=== PATIENT | male | born 1940 | race African-American/Black ===

== ENCOUNTER 2020-06-15 14:56 | Inpatient (IN) | payer MEDICARE, OTHER ==
[~2020-06-15] VITALS: Ht 177.8 cm; Wt 83.9 kg
--- NOTE | 2020-06-15 15:10 | NUR ---
DOMINGA COELHO FROM [facility] PRIOR TO GPS ADMISSION, AGGRESSIVE TOWARD STAFF PER REPORT. DENIES PAIN. IN ROOM AIR AND DENIES SOB. RESPIRATION REGULAR AND UNLABORED. ATTACHED ON A MONITOR. WARM BLANKET PROVIDED FOR COMFORT. WILL CONTINUE TO MONITOR THE PATIENT.
[2020-06-15] MEDS ORDERED: LEVE1000 PO (15:15)
[2020-06-15] MEDS ORDERED: HYDR-4075 PO (15:15)
[2020-06-15] MEDS ORDERED: BUSP30TA2 PO (15:15)
[2020-06-15] MEDS ORDERED: ACET325T53 PO (15:15)
[2020-06-15] MEDS ORDERED: RIFA550T PO (15:15)
[2020-06-15] MEDS ORDERED: CHOL200013 PO (15:15)
[2020-06-15] MEDS ORDERED: THIA100T88 PO (15:15)
[2020-06-15] MEDS ORDERED: LEVO137T24 PO (15:15)
[2020-06-15] MEDS ORDERED: LACT10SO3 PO (15:15)
[2020-06-15] MEDS ORDERED: AMLO2.5T2 PO (15:15)
[2020-06-15] MEDS ORDERED: DONE10TA11 PO (15:15)
[2020-06-15] MEDS ORDERED: FOLI0.8T3 PO (15:15)
[2020-06-15] MEDS ORDERED: DIVA250T PO (15:15)
[2020-06-15] MEDS ORDERED: FAMO-131 PO (15:15)
[2020-06-15] MEDS ORDERED: NEOM500T PO (15:15)
[2020-06-15 15:22] LABS: BASOPHILS % (AUTO) 0.3 % (0.0-2.0); EOSINOPHILS % (AUTO) 0.1 % (0.0-6.0); HEMATOCRIT 47 % (39-51); HEMOGLOBIN 15.1 g/dL (13.5-17.5); LYMPHOCYTES # (AUTO) 0.9 /CMM (0.8-4.8); LYMPHOCYTES % (AUTO) 11.9 % (20.0-44.0); MEAN CORPUSCULAR HGB CONC 32 g/dl (31.0-36.0); MEAN CORPUSCULAR VOLUME 92 fL (80-96); MONOCYTES # (AUTO) 0.5 /CMM (0.1-1.30); MONOCYTES % (AUTO) 6.3 % (2.0-12.0); NEUTROPHILS # (AUTO) 6.5 /CMM (1.8-8.9); NEUTROPHILS % (AUTO) 81.4 % (43.0-81.0); PLATELET COUNT (AUTO) 186 /CMM (150-450); RED BLOOD CELL COUNT(AUTO) 5.13 MIL/uL (4.5-6.0)
[2020-06-15 15:29] LABS: CALCIUM, SERUM 8.7 mg/dL (8.5-10.1); CARBON DIOXIDE 18 mmol/L (21-32); CHLORIDE 104 mmol/L (98-107); CREATININE 1.2 mg/dL (0.6-1.3); GLUCOSE 107 mg/dL (74-106); SODIUM SERUM 138 mmol/L (136-145); UREA NITROGEN, BLOOD 10 mg/dL (7-18)
[2020-06-15 15:36] LABS: ALANINE AMINOTRANSFERASE 36 U/L (12-78); ALCOHOL, BLOOD < 3 mg/dL (0-0); ALKALINE PHOSPHATASE 84 U/L (46-116); ASPARTATE AMINOTRANSFERASE 27 U/L (15-37); BILIRUBIN,TOTAL 0.3 mg/dL (0.2-1.0); TOTAL PROTEIN, SERUM 7.8 g/dL (6.4-8.2)
[2020-06-15 15:48] LABS: ACETAMINOPHEN < 2 ug/ml (10-30)
[2020-06-15] MEDS ORDERED: ACETAMINOPHEN 325 MG TABLET PO PRN ×2 (16:30→22:30)
--- NOTE | 2020-06-15 16:38 | NUR ---
SHENG COLLECTED AND SENT TO THE
[2020-06-15 16:53] LABS: BILIRUBIN,URINE Negative (NEGATIVE); COLOR,URINE YELLOW (YELLOW); LEUKOCYTE ESTERASE ,URINE Negative (NEGATIVE); NITRITE, URINE Negative (NEGATIVE); PROTEIN,URINE Negative (NEGATIVE); UGLUCOSE Negative (NEGATIVE); UROBILINOGEN,URINE 0.2 EU/dL (0.2)
[2020-06-15 17:00] LABS: ALBUMIN 4.1 g/dL (3.4-5.0)
[2020-06-15] MEDS: hydrALAZINE HCL 10 MG TABLET PO SCH ×2 (17:00→21:00)
--- NOTE | 2020-06-15 17:58 | NUR ---
CALLED LEAD DATA ENTRY OPERATOR FOR EVAL. NO ANSWER. LEFT MESSAGE.
--- NOTE | 2020-06-15 20:55 | NUR ---
gps 211
--- NOTE | 2020-06-15 21:23 | NUR ---
ATTEMPTED TO GIVE REPORT, STAFF STATES THEY ARE BUSY WITH THE PATIENT AT THE MOMENT. WILL RECEIVE A CALLBACK.
--- NOTE | 2020-06-15 21:50 | NUR ---
RN NOTES RECEIVED ER ADMISSION REPORT FROM DOUG CHAMBERLAIN. ALL PERTINENT ADMISSION INFO REGARDING PT NOTED. WILL WAIT FOR PT TO BE TRANSFERRED TO UNIT AND ADDRESS NEEDS ACCORDINGLY. BOAT CANVAS MAKER INSTALLER MADE AWARE
--- NOTE | 2020-06-15 21:52 | NUR ---
REPORT GIVEN TO NIKHIL CAMACHO FOR CLIFTON.
[2020-06-15 22:00] VITALS: BP 142/68
--- NOTE | 2020-06-15 22:00 | NUR ---
PATIENT TAKEN UP TO ASSIGNED ROOM FOR CLIFTON.
--- NOTE | 2020-06-15 22:00 | NUR ---
GPS ADMISSION NOT RECEIVED PATIENT FROM ER VIA GURNEY; ADMITTING DIAGNOSIS OF PSYCHOSIS PATIENT AWAKE, ALERT ORIENTED X 1-2; LETHARGIC AND CONFUSED. VIETNAMESE SPEAKING. PATIENT NOTED TO BE GRAVELY DISABLED AND DANGER TO OTHERS PER ER REPORT. PATIENT IN NO S/SX OF ACUTE DISTRESS AT THIS TIME. NO SOB NOTED. PATIENT'S BREATHING IS EVEN AND UNLABORED. PATIENT IS ON RA TOLERATING WELL. SATURATING >95% AT THE MOMENT.NO MEDICATION GIVEN. PATIENT ASSISTED WITH TURNING AND REPOSITIONING Q2HR AND PRN FOR COMFORT AND CIRCULATION. PATIENT HAS NO NEEDS AT THIS TIME. PATIENT DENIES SUICIDE THOUGHTS AND HOMICIDAL IDEATIONS AT THIS TIME. . PATIENT HAS BEEN ADVISED OF HER HOLD AND PT RIGHTS BOOKLET WERE GIVEN. PATIENT BELONGINGS WERE INVENTORIED AND CHECKED FOR CONTRABAND. NO CONTRABAND NOTED. PATIENT ADVANCED DIRECTIVE PREFERENCE, IMMUNIZATIONS QUESTIONNAIRE, AND OTHER NECESSARY PAPERWORK COMPLETED. PATIENT SKIN ASSESSMENT COMPLETED. PATIENT ORIENTED TO ROOM, FLOOR/UNIT AND STAFF WITH ALL QUESTIONS ANSWERED. KEPT PATIENT CLEAN , DRY AND COMFORTABLE.SAFETY MEASURES HAVE BEEN PROVIDED AND IMPLEMENTED. PATIENT BED ALARM IS ON. HEAD OF BED ELEVATED. BED IS LOCKED, IN LOWEST POSITION AND SIDE RAILS UP. CALL LIGHT WITHIN REACH OF THE PATIENT. ISOLATION PRECAUTIONS IN PLACE. WILL CONTINUE TO MONITOR AND REASSESS FOR ANY CHANGES [id number]. WILL ATTEND TO ALL MD ADMITTING ORDERS. Addendum: 06/15/20 at 2257 by STORM CRAVEN RN GPS ADMISSION NOTE RECEIVED PATIENT FROM ER VIA GURNEY; ADMITTING DIAGNOSIS OF PSYCHOSIS PATIENT AWAKE, ALERT ORIENTED X 1-2; LETHARGIC AND CONFUSED. VIETNAMESE SPEAKING. PATIENT NOTED TO BE GRAVELY DISABLED AND DANGER TO OTHERS PER ER REPORT. PATIENT IN NO S/SX OF ACUTE DISTRESS AT THIS TIME. NO SOB NOTED. PATIENT'S BREATHING IS EVEN AND UNLABORED. PATIENT IS ON RA TOLERATING WELL. SATURATING >95% AT THE MOMENT.NO MEDICATION GIVEN. PATIENT ASSISTED WITH TURNING AND REPOSITIONING Q2HR AND PRN FOR COMFORT AND CIRCULATION. PATIENT HAS NO NEEDS AT THIS TIME. PATIENT DENIES SUICIDE THOUGHTS AND HOMICIDAL IDEATIONS AT THIS TIME. . PATIENT HAS BEEN ADVISED OF HER HOLD AND PT RIGHTS BOOKLET WERE GIVEN. PATIENT BELONGINGS WERE INVENTORIED AND CHECKED FOR CONTRABAND. NO CONTRABAND NOTED. PATIENT ADVANCED DIRECTIVE PREFERENCE, IMMUNIZATIONS QUESTIONNAIRE, AND OTHER NECESSARY PAPERWORK COMPLETED. PATIENT SKIN ASSESSMENT COMPLETED. PATIENT ORIENTED TO ROOM, FLOOR/UNIT AND STAFF WITH ALL QUESTIONS ANSWERED. KEPT PATIENT CLEAN , DRY AND COMFORTABLE.SAFETY MEASURES HAVE BEEN PROVIDED AND IMPLEMENTED. PATIENT BED ALARM IS ON. HEAD OF BED ELEVATED. BED IS LOCKED, IN LOWEST POSITION AND SIDE RAILS UP. CALL LIGHT WITHIN REACH OF THE PATIENT. ISOLATION PRECAUTIONS IN PLACE. WILL CONTINUE TO MONITOR AND REASSESS FOR ANY CHANGES [id number]. WILL ATTEND TO ALL MD ADMITTING ORDERS.
[2020-06-15] MEDS ORDERED: MAG HYDROX/AL HYDROX/SIMETH 30 ML UDC PO PRN (22:30)
[2020-06-15] MEDS ORDERED: MAGNESIUM HYDROXIDE 30 ML UDC PO PRN (22:30)
--- NOTE | 2020-06-15 22:30 | NUR ---
RN NOTES WILLBE COVERING FOR MEDICATION ADMINSTRATION FOR NEOMYCIN AND RIFAXIMIN SCHEDULED FOR 1700 NOT GIVEN IN ER; REQUESTED FOR MEDICATION FROM [facility] SUP; AWAITING FOR MEDICATIONS. ONCE RECEIVED WILL ATTEMPT TO GIVE TO PT. PROFESSOR OF OCEANOGRAPHY MADE AWARE.
--- NOTE | 2020-06-15 22:46 | NUR ---
RN NOTES APRESOLINE DUE FOR 1700 AND 2100 NOT GIVEN, PT WAS WHEELED IN TO THE UNIT @2200, MEDICATIONS BEING SCHEDULED Q4H NEXT DOSE TO BE GIVEN @0100AM. VIDEO GAME ANIMATOR MADE AWARE. WILL CONTINUE TO ASSESS AND MONITOR THROUGHOUT THE SHIFT.
[2020-06-15] MEDS ORDERED: BLOOD SUGAR DIAGNOSTIC 1 EACH STRIP IN ONE (23:00)
--- NOTE | 2020-06-15 23:41 | NUR ---
RN NOTES ACCU CHECK DONE; 95MG/DL
[2020-06-15] MEDS ORDERED: NEOMYCIN SULFATE (500MG) 500 MG TABLET ONE (23:48)
[2020-06-15] MEDS ORDERED: RIFAXIMIN 550 MG TABLET ONE (23:51)
[2020-06-16] MEDS: RIFAXIMIN 550 MG TABLET PO SCH ×3 (00:20→17:00)
[2020-06-16] MEDS: NEOMYCIN SULFATE (500MG) 500 MG TABLET PO SCH ×3 (00:20→17:00)
[2020-06-16] MEDS: hydrALAZINE HCL 10 MG TABLET PO SCH ×6 (00:20→21:00)
--- NOTE | 2020-06-16 06:47 | NUR ---
GPS RN CLOSING NOTES PT IS SLEEPING ON BED, RESPIRATION EVEN AND UNLABORED WITH EQUAL RISE AND FALL OF THE CHEST. ALL CARE NEEDS, TREATMENT AND MEDICATIONS ADMINISTERED ANTICIPATED PER ORDER. NO BEHAVIORAL ISSUES THIS SHIFT. SAFETY PRECAUTION TAKEN. BED IN LOWEST LOCKED POSITION, SIDE RAILS UP X2, CALL LIGHT WITHIN REACH. WILL ENDORSE TO CONTINUE TO MONITOR [id number] AND Q1HR PER GPS PROTOCOL FOR SAFETY, MOOD AND BEHAVIOR AND ENDORSE TO AM SHIFT.
[2020-06-16 08:08] VITALS: BP 132/59
[2020-06-16] MEDS ORDERED: DIVALPROEX SODIUM 125 MG CAP.SPRINK PO SCH (09:00)
[2020-06-16] MEDS: CHOLECALCIFEROL 1,000 UNIT TABLET (VIT D3) PO SCH (10:17)
[2020-06-16] MEDS: LACTULOSE 10 G/15 ML UDC (PYXIS) PO SCH ×3 (10:17→17:00)
[2020-06-16] MEDS: FOLIC ACID 1 MG TABLET PO SCH (10:17)
[2020-06-16] MEDS: THIAMINE HCL 100 MG TABLET PO SCH (10:18)
[2020-06-16] MEDS: FAMOTIDINE (20 MG) 20 MG TABLET PO SCH (10:18)
[2020-06-16] MEDS: LEVOTHYROXINE SODIUM 88 MCG TABLET PO SCH (10:18)
[2020-06-16] MEDS: LEVETIRACETAM (250 MG) 250 MG TABLET PO SCH ×2 (10:19→21:00)
--- NOTE | 2020-06-16 10:45 | NUR ---
JUST GAVE PT. AM MEDS AND SHORTLY AFTER HEAR NURSES CALLING OUT,PT. FOUND ON FLOOR NEAR LEFT SIDE OF BED. NOTED SWELLING TO THE LEFT OF LT EYE ALONG WITH A SMALL SKIN TEAR.PT. ALREADY CONFUSED.VS TAKEN 134/68,HEART RATE 71.ALERT SKIN WARM AND DRY RR 16.ABLE TO STAND PT.THEN PUT INTO HAMMAD CHAIR
[2020-06-16] MEDS: DONEPEZIL 5 MG TABLET PO SCH ×2 (10:48→17:00)
[2020-06-16] MEDS: AMLODIPINE BESYLATE 2.5 MG TABLET PO SCH (10:49)
--- NOTE | 2020-06-16 10:50 | NUR ---
SUPERVISR AND ESCOBAR NOTIFIED.CALL OUT TO DR. AVERY.
--- NOTE | 2020-06-16 11:30 | NUR ---
RETURN CALL FROM DR. AVERY WITH ORDERS.
[2020-06-16] MEDS: LORAZEPAM 0.5 MG TABLET PO PRN (11:43)
--- NOTE | 2020-06-16 11:43 | NUR ---
ATIVAN GIVEN INPREPARATION OF SCHEDULED CT SCAN OF HEAD
--- NOTE | 2020-06-16 13:11 | NUR ---
HYDRALAZINE HELD DUE TO 62 HEART RATE.
--- NOTE | 2020-06-16 14:00 | NUR ---
CT NO ANSWER AT SON'S #.AND VOICE MAIL LEFT ON 'S PHONE.PHOTO OF HEAD DONE.WITHOUT CONTRAST OF HEAD COMPLETED.MIDDLE OR INTERMEDIATE SCHOOL PRINCIPAL ESSIE CALLED SON NIKHIL AND OTHER FAMILY MEMBER LISA WARREN.NO APPARENT CHG. IN PT. STATUS. Addendum: 06/16/20 at 1422 by AGA SUAREZ RN CORRECTION ON ABOVE NOTE. CT OF HEAD DONE.VOICE MAIL LEFT ON FAMILY MEMBER 'S PHONE.NO ANSWER AT [facility] REGARDING FALL.NO APPARENT CHG. IN PT. STATUS.
--- NOTE | 2020-06-16 14:30 | NUR ---
PT. BEING WHEELED OUT OF DAY RM.SCREAMING AND YELLING. PER OUTPLACEMENT CONSULTANT,PT. STARTED ASKING FOR NURSE THEN SUDDENLY STARTED GETTING VERY AGITATED AND SCREAMING.PSYCHIATRIST CONTACTED AND INJECTIONS ORDERED.
--- NOTE | 2020-06-16 14:56 | NUR ---
GPS/RN-NOTES NOTED PATIENT WITH AGGRESSIVE AND COMBATIVE BEHAVIOR IN THE DAY ROOM DISRUPTIVE WITH THE GROUP ACTIVITY. DR. RUBIO MADE AWARE WITH T.O ORDER OF ATIVAN 2MG IM X1 ,HALDOL 5MG IM X1 AND BENADRYL 25MG IM X1.NOTED AND CARRIED OUT.
[2020-06-16] MEDS ORDERED: LORAZEPAM INJ 2 MG/ML VIAL IM ONE (15:00)
[2020-06-16] MEDS ORDERED: diphenhydrAMINE HCL 50 MG/ML VIAL IM ONE (15:00)
[2020-06-16] MEDS ORDERED: HALOPERIDOL LACTATE INJ 5 MG/ML VIAL IM ONE (15:00)
--- NOTE | 2020-06-16 15:05 | NUR ---
INJECTIONS GIVEN ORDERED,BENADRYL,ATIVAN AND HALDOL.
--- NOTE | 2020-06-16 15:54 | NUR ---
SLEEPING SITTING UP.
[2020-06-16 15:55] VITALS: BP 145/70
--- NOTE | 2020-06-16 18:35 | NUR ---
UNABLE TO TAKE JERALD. MEDS DUE TO SEDATION.
--- NOTE | 2020-06-16 19:30 | NUR ---
GPS RN NOTES RECEIVED LYING COMFORTABLY ON BED,IN HIS ROOM,BREATHING REGULAR,NOT IN ANY FORM OF DISTRESS,PER REPORT,PATIENT GETS EASILY AGITATED,SCREAMING,YELLING ON DAYTIME WHERE HE WAS GIVEN IM OF ATIVAN,HALDOL AND BENADRYL.FALL PRECAUTION OBSERVED,BED ON LOWEST POSITION AND LOCKED,BED ALARM TRIGGERED.WILL CONTINUE TO MONITOR BEHAVIOR.
[2020-06-16 20:00] VITALS: BP 136/77
--- NOTE | 2020-06-16 20:00 | NUR ---
GPS RN NOTES MD VISIT DR RUBIO AT BEDSIDE,AWAITING FOR ORDERED.
[2020-06-16 20:43] VITALS: BP 136/76
--- NOTE | 2020-06-16 22:00 | NUR ---
GPS RN NOTES TOO SEDATED FROM ATIVAN,HALDOL AND BENADRYL,AROUSABLE,UNABLE TO TAKE MEDICATIONS
--- NOTE | 2020-06-17 01:00 | NUR ---
GPS RN NOTES AWAKE,THIS TI,E.ASSISTED TO THE TOILET,WITH UNSTEADY GAIT. TRANSFERRED TO [facility],WITH SITTER FOR SAFETY.
[2020-06-17] MEDS: hydrALAZINE HCL 10 MG TABLET PO SCH ×6 (01:21→21:00)
[2020-06-17] MEDS: TEMAZEPAM 7.5 MG CAPSULE PO PRN (01:21)
--- NOTE | 2020-06-17 01:21 | NUR ---
GPS RN NOTES DUE BLOOD PRESSURE MEDS GIVENMBP 151/75,PULSE 95.A,SO GIVEN RESTORIL 7.5MG PO ORDERED FOR SLEEP.
--- NOTE | 2020-06-17 06:34 | NUR ---
GPS RN NOTES SLEEP WELL,MED COMPLIANT,NO AGGRESSIVE BEHAVIOR NOTED.
[2020-06-17 08:00] VITALS: BP 118/62
[2020-06-17 08:53] LABS: BASOPHILS % (AUTO) 0.7 % (0.0-2.0); EOSINOPHILS % (AUTO) 1.7 % (0.0-6.0); HEMATOCRIT 42 % (39-51); LYMPHOCYTES # (AUTO) 1.5 /CMM (0.8-4.8); LYMPHOCYTES % (AUTO) 32.3 % (20.0-44.0); MEAN CORPUSCULAR HGB CONC 33 g/dl (31.0-36.0); MEAN CORPUSCULAR VOLUME 91 fL (80-96); MONOCYTES # (AUTO) 0.4 /CMM (0.1-1.30); MONOCYTES % (AUTO) 8.1 % (2.0-12.0); NEUTROPHILS # (AUTO) 2.7 /CMM (1.8-8.9); NEUTROPHILS % (AUTO) 57.2 % (43.0-81.0); PLATELET COUNT (AUTO) 178 /CMM (150-450); RED BLOOD CELL COUNT(AUTO) 4.68 MIL/uL (4.5-6.0); WHITE BLOOD COUNT (AUTO) 4.7 K/uL (4.3-11.0)
[2020-06-17 09:01] LABS: CALCIUM, SERUM 8.9 mg/dL (8.5-10.1); CREATININE 1.2 mg/dL (0.6-1.3); POTASSIUM 3.9 mmol/L (3.5-5.1)
[2020-06-17] MEDS: RIFAXIMIN 550 MG TABLET PO SCH ×2 (09:32→17:30)
[2020-06-17] MEDS: NEOMYCIN SULFATE (500MG) 500 MG TABLET PO SCH ×2 (09:32→17:30)
[2020-06-17] MEDS: DIVALPROEX SODIUM 250 MG TABLET.DR PO SCH ×3 (09:33→17:30)
[2020-06-17] MEDS: THIAMINE HCL 100 MG TABLET PO SCH (09:33)
[2020-06-17] MEDS: LEVOTHYROXINE SODIUM 88 MCG TABLET PO SCH (09:33)
[2020-06-17] MEDS: LACTULOSE 10 G/15 ML UDC (PYXIS) PO SCH ×3 (09:33→17:31)
[2020-06-17] MEDS: FOLIC ACID 1 MG TABLET PO SCH (09:33)
[2020-06-17] MEDS: CHOLECALCIFEROL 1,000 UNIT TABLET (VIT D3) PO SCH (09:33)
[2020-06-17] MEDS: FAMOTIDINE (20 MG) 20 MG TABLET PO SCH (09:33)
[2020-06-17] MEDS: AMLODIPINE BESYLATE 2.5 MG TABLET PO SCH (09:34)
[2020-06-17] MEDS: DONEPEZIL 5 MG TABLET PO SCH ×2 (09:34→17:30)
[2020-06-17] MEDS: LEVETIRACETAM (250 MG) 250 MG TABLET PO SCH ×2 (10:47→21:00)
[2020-06-17] MEDS: LORAZEPAM 0.5 MG TABLET PO PRN (15:38)
[2020-06-17 16:00] VITALS: BP 114/69
[2020-06-17] MEDS ORDERED: LORAZEPAM INJ 2 MG/ML VIAL IM STA (16:24)
[2020-06-17] MEDS ORDERED: HALOPERIDOL DECANOATE IM 100 MG/ML AMPUL IM STA (16:24)
[2020-06-17] MEDS ORDERED: diphenhydrAMINE HCL 50 MG/ML VIAL IM STA (16:24)
[2020-06-17] MEDS ORDERED: HALOPERIDOL LACTATE INJ 5 MG/ML VIAL IM STA (16:34)
--- NOTE | 2020-06-17 16:40 | NUR ---
RN NOTE PATIENT BECAME AGGRESSIVE AND GOT OUT OF GERICHAIR. PER MD ANGELICA AUGUSTE AND CHANELL.
--- NOTE | 2020-06-17 20:30 | NUR ---
RN NOTE: REFUSED VITALS PATIENT REFUSED VITALS AT THIS TIME, BECOMES AGITATED & AGGRESSIVE WHEN APPROACHED & WANTS TO SLEEP. WILL CONTINUE TO MONITOR CLOSELY FOR CLIFTON.
--- NOTE | 2020-06-17 21:24 | NUR ---
RN NOTE: MEDICATION REFUSAL PATIENT IS SLEEPING AT THIS TIME, WOKE UP THE PATIENT & OFFERED SCHEDULED MEDS & PO FLUIDS, PATIENT REFUSED HYDRALAZINE & KEPPRA SCHEDULED AT 2100 AT THIS TIME DESPITE OF RISKS & BENEFIT EXPLANATIONS. PATIENT ALSO REFUSED SNACKS & FLUIDS AT THIS TIME. PATIENT BECOMES AGGRESSIVE & VERY AGITATED WHEN WOKE HIM UP & STATED," WHY ARE YOU BOTHERING ME, GO AWAY." WILL CONTINUE TO MONITOR CLOSELY FOR ANY CHANGE OF CONDITION.
[2020-06-18] MEDS: hydrALAZINE HCL 10 MG TABLET PO SCH ×6 (01:00→20:48)
--- NOTE | 2020-06-18 01:27 | NUR ---
RN NOTE: REFUSED VITALS PATIENT REFUSED VITALS AT THIS TIME, DOES NOT WANT TO BE BOTHERED, STATED" LET ME SLEEP, STOP BOTHERING ME." PATIENT IS VERY UNCOOPERATIVE & NON COMPLAINT WITH MEDICINES & CARE.
--- NOTE | 2020-06-18 01:46 | NUR ---
RN NOTE PATIENT REFUSED HYDRALAZINE 10 MG DESPITE OF RISKS & BENEFITS EXPLANATIONS, PT. IS NON COMPLAINT WITH MEDICINES AT THIS TIME, DOES NOT TO BE BOTHERED WHILE ASLEEP, UNCOOPERATIVE, EASILY AGITATED & AGGRESSIVE. NO ACUTE DISTRESS NOTED. WILL CONTINUE TO MONITOR.
--- NOTE | 2020-06-18 05:15 | NUR ---
RN NOTE: REFUSED HYDRALAZINE PATIENT REFUSED VITALS & HYDRALAZINE 10 MG SCHEDULED. PT. IS NON COMPLAINT, TOO SLEEPY, DOES NOT TO BE BOTHERED WHILE ASLEEP, UNCOOPERATIVE, UNPREDICTABLE, EASILY AGITATED & AGGRESSIVE. NO ACUTE DISTRESS NOTED. WILL CONTINUE TO MONITOR.
--- NOTE | 2020-06-18 06:57 | NUR ---
RN NOTE PATIENT CONTINUED TO REFUSE WEEKLY SKIN ASSESSMENT THROUGH OUT THE SHIFT. EASILY AGITATED, AGGRESSIVE, UNPREDICTABLE, NON COMPLAINT WITH CARE.
[2020-06-18] MEDS: LEVOTHYROXINE SODIUM 88 MCG TABLET PO SCH (07:59)
[2020-06-18 08:00] VITALS: BP 122/73
[2020-06-18] MEDS: LEVETIRACETAM (250 MG) 250 MG TABLET PO SCH ×2 (08:00→20:48)
[2020-06-18] MEDS: DIVALPROEX SODIUM 250 MG TABLET.DR PO SCH ×3 (08:01→16:59)
[2020-06-18] MEDS: THIAMINE HCL 100 MG TABLET PO SCH (08:01)
[2020-06-18] MEDS: DONEPEZIL 5 MG TABLET PO SCH ×2 (08:01→16:59)
[2020-06-18] MEDS: FAMOTIDINE (20 MG) 20 MG TABLET PO SCH (08:01)
[2020-06-18] MEDS: AMLODIPINE BESYLATE 2.5 MG TABLET PO SCH (08:01)
[2020-06-18] MEDS: FOLIC ACID 1 MG TABLET PO SCH (08:01)
[2020-06-18] MEDS: LACTULOSE 10 G/15 ML UDC (PYXIS) PO SCH ×3 (08:01→16:58)
[2020-06-18] MEDS: CHOLECALCIFEROL 1,000 UNIT TABLET (VIT D3) PO SCH (08:01)
[2020-06-18] MEDS: NEOMYCIN SULFATE (500MG) 500 MG TABLET PO SCH ×2 (08:02→16:59)
[2020-06-18] MEDS: RIFAXIMIN 550 MG TABLET PO SCH ×2 (08:02→17:00)
--- NOTE | 2020-06-18 15:15 | NUR ---
SNF Contact: JOVITA contacted Kandy ([phone]) from [facility] who stated that the pt will be accepted back to their facility at the time of discharge.
[2020-06-18 16:00] VITALS: BP 123/71
--- NOTE | 2020-06-18 16:53 | NUR ---
Family Contact: SW contacted the pts son, Cruzito ([phone]), and left him a voicemail stating that the SW would like to discuss the pts treatment plan.
--- NOTE | 2020-06-18 17:08 | NUR ---
Initial Discharge Plan: Pt currently resides at [facility] located at [id number] [id number]; ([phone]). Pt can return per the junior database administrator, Kandy. SW will work with the pt and the MD regarding appropriate discharge planning. SW will form a safe and proper discharge.
[2020-06-18 20:00] VITALS: BP 128/70
[2020-06-18] MEDS: TEMAZEPAM 7.5 MG CAPSULE PO PRN (20:49)
[2020-06-18] MEDS: LORAZEPAM 0.5 MG TABLET PO PRN (21:30)
[2020-06-18] MEDS ORDERED: OLANZAPINE ZYDIS 5 MG TAB.RAPDIS PO SCH (22:00)
[2020-06-19] MEDS: hydrALAZINE HCL 10 MG TABLET PO SCH ×7 (01:43→21:56)
[2020-06-19 06:00] VITALS: BP 128/70
--- NOTE | 2020-06-19 07:00 | NUR ---
GPS INFLATABLE BUILDINGS LAMINATOR: NOTES RECEIVED PT IN BED SOUNDS ASLEEP. NO S/S OF RESP. DISTRESS NOTED.
[2020-06-19 08:00] VITALS: BP 131/71
--- NOTE | 2020-06-19 09:00 | NUR ---
GPS MOTOR SCOOTER REPAIRER: NOTES SLEEPING AT INTERVAL. NO DISTRESS NOTED.
[2020-06-19] MEDS: RIFAXIMIN 550 MG TABLET PO SCH ×3 (09:48→16:47)
[2020-06-19] MEDS: NEOMYCIN SULFATE (500MG) 500 MG TABLET PO SCH ×3 (09:48→16:47)
[2020-06-19] MEDS: LEVETIRACETAM (250 MG) 250 MG TABLET PO SCH ×2 (09:48→21:57)
[2020-06-19] MEDS: THIAMINE HCL 100 MG TABLET PO SCH ×2 (09:49→10:04)
[2020-06-19] MEDS: DIVALPROEX SODIUM 250 MG TABLET.DR PO SCH ×3 (09:49→16:47)
[2020-06-19] MEDS: FAMOTIDINE (20 MG) 20 MG TABLET PO SCH ×2 (09:49→10:04)
[2020-06-19] MEDS: FOLIC ACID 1 MG TABLET PO SCH ×2 (09:49→10:03)
[2020-06-19] MEDS: DONEPEZIL 5 MG TABLET PO SCH ×2 (09:49→16:47)
[2020-06-19] MEDS: CHOLECALCIFEROL 1,000 UNIT TABLET (VIT D3) PO SCH ×2 (09:49→10:04)
[2020-06-19] MEDS: AMLODIPINE BESYLATE 2.5 MG TABLET PO SCH ×2 (09:49→10:04)
[2020-06-19] MEDS: LEVOTHYROXINE SODIUM 88 MCG TABLET PO SCH ×2 (09:50→10:03)
[2020-06-19] MEDS: LACTULOSE 10 G/15 ML UDC (PYXIS) PO SCH ×3 (09:50→16:47)
--- NOTE | 2020-06-19 10:00 | NUR ---
gps change control manager: notes awaken, assisted to dining room. pt refused some meds, stated, "it's too many, i already took some this morning." reality orientation provided prn. will continue to monitor.
[2020-06-19] MEDS: LORAZEPAM 0.5 MG TABLET PO PRN (10:46)
--- NOTE | 2020-06-19 11:45 | NUR ---
gps pss delivery professional: notes pt screaming and yelling in the dining room with another resident. pt request to be put back to bed. assisted back to bed safely. reality orientation provided prn. will continue to monitor.
[2020-06-19] MEDS ORDERED: HALOPERIDOL LACTATE INJ 5 MG/ML VIAL IM STA (12:35)
[2020-06-19] MEDS ORDERED: diphenhydrAMINE HCL 50 MG/ML VIAL IM STA (12:35)
[2020-06-19] MEDS ORDERED: LORAZEPAM INJ 2 MG/ML VIAL IM STA (12:35)
--- NOTE | 2020-06-19 12:35 | NUR ---
gps senior informatica etl developer: notes pt yelling and screaming, getting agitated, and unable to control his behavior. cn called dr. la and made aware of pt's behavior with orders. orders carried out by cn. pharmacist notified to verify orders. pt refused to take his po meds. vss, will continue to monitor. Addendum: 06/19/20 at 1242 by IOANA COFFMANN correction on above psychiatrist. cn called dr. solorzano.
--- NOTE | 2020-06-19 12:44 | NUR ---
gps lime sludge kiln operator: notes benadry 25mg im and haldol 5mg im given to left gluteal and ativan 2mg im given to right gluteal with staff assisting. reality orientation provided. will continue to monitor.
--- NOTE | 2020-06-19 13:30 | NUR ---
gps dietetic aide: notes sounds asleep at this time. no distress noted.
--- NOTE | 2020-06-19 15:00 | NUR ---
gps fruit shipper: notes pt still sleeping. no distress noted. will continue to monitor.
[2020-06-19 16:00] VITALS: BP 126/67
--- NOTE | 2020-06-19 16:00 | NUR ---
gps booking clerk: notes dr. solorzano on facetime with pt, but still sedated. no distress noted. will continue to monitor.
[2020-06-19 20:42] VITALS: BP 149/73
[2020-06-19] MEDS: OLANZAPINE ZYDIS 5 MG TAB.RAPDIS PO SCH (21:58)
[2020-06-20] MEDS: hydrALAZINE HCL 10 MG TABLET PO SCH ×6 (00:20→21:35)
[2020-06-20 01:00] VITALS: BP 109/68
[2020-06-20 08:00] VITALS: BP 122/66
[2020-06-20] MEDS: LORAZEPAM 0.5 MG TABLET PO PRN ×3 (09:49→16:08)
--- NOTE | 2020-06-20 09:50 | NUR ---
IN HAMMAD CHAIR IN TV RM. AND GETTING VERY AGITATED.TAKEN BACK TO BED AND GIVEN ATIVAN.SIDE RAILS UP.Mallorie BETHAN IN AND ORDERS GIVEN.
[2020-06-20] MEDS: LEVOTHYROXINE SODIUM 88 MCG TABLET PO SCH (09:54)
[2020-06-20] MEDS: LACTULOSE 10 G/15 ML UDC (PYXIS) PO SCH ×3 (09:54→16:22)
[2020-06-20] MEDS: CHOLECALCIFEROL 1,000 UNIT TABLET (VIT D3) PO SCH (09:54)
[2020-06-20] MEDS: LEVETIRACETAM (250 MG) 250 MG TABLET PO SCH ×2 (09:55→21:35)
[2020-06-20] MEDS: FOLIC ACID 1 MG TABLET PO SCH (09:55)
[2020-06-20] MEDS: AMLODIPINE BESYLATE 2.5 MG TABLET PO SCH (09:55)
[2020-06-20] MEDS: THIAMINE HCL 100 MG TABLET PO SCH (09:55)
[2020-06-20] MEDS: DIVALPROEX SODIUM 250 MG TABLET.DR PO SCH ×3 (09:55→17:29)
[2020-06-20] MEDS: DONEPEZIL 5 MG TABLET PO SCH ×2 (09:56→17:29)
[2020-06-20] MEDS: FAMOTIDINE (20 MG) 20 MG TABLET PO SCH (09:56)
[2020-06-20] MEDS: NEOMYCIN SULFATE (500MG) 500 MG TABLET PO SCH ×2 (09:57→17:28)
[2020-06-20] MEDS: RIFAXIMIN 550 MG TABLET PO SCH ×2 (09:58→17:29)
[2020-06-20 16:00] VITALS: BP 141/67
--- NOTE | 2020-06-20 16:12 | NUR ---
GIVEN ATIVAN FOR RESTLESSNESS.
--- NOTE | 2020-06-20 16:27 | NUR ---
FREQ. GETTING OOB,ALTHOUGH BED ALARM SET.
--- NOTE | 2020-06-20 18:43 | NUR ---
appetite godd.monitoring closely.
[2020-06-20 20:25] VITALS: BP 139/69
[2020-06-20] MEDS: OLANZAPINE ZYDIS 5 MG TAB.RAPDIS PO SCH (21:46)
[2020-06-21] MEDS: hydrALAZINE HCL 10 MG TABLET PO SCH ×6 (01:24→21:00)
[2020-06-21 08:00] VITALS: BP 121/63
[2020-06-21] MEDS: LEVOTHYROXINE SODIUM 88 MCG TABLET PO SCH (08:17)
[2020-06-21] MEDS: CHOLECALCIFEROL 1,000 UNIT TABLET (VIT D3) PO SCH (08:45)
[2020-06-21] MEDS: DONEPEZIL 5 MG TABLET PO SCH ×2 (08:45→17:18)
[2020-06-21] MEDS: DIVALPROEX SODIUM 250 MG TABLET.DR PO SCH ×3 (08:45→17:17)
[2020-06-21] MEDS: LACTULOSE 10 G/15 ML UDC (PYXIS) PO SCH ×3 (08:46→17:17)
[2020-06-21] MEDS: FAMOTIDINE (20 MG) 20 MG TABLET PO SCH (08:46)
[2020-06-21] MEDS: AMLODIPINE BESYLATE 2.5 MG TABLET PO SCH (08:46)
[2020-06-21] MEDS: FOLIC ACID 1 MG TABLET PO SCH (08:46)
[2020-06-21] MEDS: LEVETIRACETAM (250 MG) 250 MG TABLET PO SCH ×2 (08:46→21:27)
[2020-06-21] MEDS: THIAMINE HCL 100 MG TABLET PO SCH (08:46)
[2020-06-21] MEDS: NEOMYCIN SULFATE (500MG) 500 MG TABLET PO SCH ×2 (09:21→17:17)
[2020-06-21] MEDS: RIFAXIMIN 550 MG TABLET PO SCH ×2 (09:21→17:17)
--- NOTE | 2020-06-21 10:14 | NUR ---
Probable Cause Hearing: Pts [id number] hold was upheld for grave disability.
[2020-06-21 16:00] VITALS: BP 122/75
[2020-06-21 20:00] VITALS: BP 125/66
[2020-06-21 20:15] VITALS: BP 125/66
--- NOTE | 2020-06-21 21:30 | NUR ---
RN NOTE: HELD HYDRALAZINE PATIENT'S VITALS ARE 108/62, 70, 20, 97.5, 97% AT RA. HELD HYDRALAZINE AT 2100 DUE TO DECREASED BLOOD PRESSURE. WILL CONTINUE TO MONITOR FOR ANY CHANGE OF CONDITION.
[2020-06-21] MEDS: OLANZAPINE ZYDIS 5 MG TAB.RAPDIS PO SCH (22:02)
[2020-06-22] MEDS: hydrALAZINE HCL 10 MG TABLET PO SCH ×6 (01:00→21:06)
--- NOTE | 2020-06-22 01:07 | NUR ---
RN NOTE: REFUSED HYDRALAZINE PATIENT REFUSED VITALS & HYDRALAZINE 10 MG SCHEDULED AT THIS TIME. PT. DOES NOT TO BE BOTHERED WHILE ASLEEP, EASILY AGITATED & AGGRESSIVE. NO ACUTE DISTRESS NOTED. WILL CONTINUE TO MONITOR.
--- NOTE | 2020-06-22 05:14 | NUR ---
RN NOTE: REFUSED HYDRALAZINE PATIENT REFUSED VITALS & HYDRALAZINE 10 MG SCHEDULED AT THIS TIME. PT. WANTED TO SLEEP & CONTINUED TO REFUSE VITALS & MEDICINE. NO ACUTE DISTRESS NOTED. WILL CONTINUE TO MONITOR.
[2020-06-22 08:00] VITALS: BP 121/65
[2020-06-22] MEDS: LEVOTHYROXINE SODIUM 88 MCG TABLET PO SCH (08:29)
[2020-06-22] MEDS: LEVETIRACETAM (250 MG) 250 MG TABLET PO SCH ×2 (08:29→21:08)
[2020-06-22] MEDS: FAMOTIDINE (20 MG) 20 MG TABLET PO SCH (08:29)
[2020-06-22] MEDS: RIFAXIMIN 550 MG TABLET PO SCH ×2 (08:30→17:24)
[2020-06-22] MEDS: DIVALPROEX SODIUM 250 MG TABLET.DR PO SCH ×3 (08:30→17:24)
[2020-06-22] MEDS: THIAMINE HCL 100 MG TABLET PO SCH (08:30)
[2020-06-22] MEDS: NEOMYCIN SULFATE (500MG) 500 MG TABLET PO SCH ×2 (08:30→17:24)
[2020-06-22] MEDS: FOLIC ACID 1 MG TABLET PO SCH (08:30)
[2020-06-22] MEDS: CHOLECALCIFEROL 1,000 UNIT TABLET (VIT D3) PO SCH (08:30)
[2020-06-22] MEDS: DONEPEZIL 5 MG TABLET PO SCH ×2 (08:30→17:24)
[2020-06-22] MEDS: AMLODIPINE BESYLATE 2.5 MG TABLET PO SCH (08:31)
[2020-06-22] MEDS: LACTULOSE 10 G/15 ML UDC (PYXIS) PO SCH ×3 (08:31→17:24)
[2020-06-22 16:00] VITALS: BP 134/71
[2020-06-22 19:59] VITALS: BP 127/70
[2020-06-22] MEDS: OLANZAPINE ZYDIS 5 MG TAB.RAPDIS PO SCH (22:17)
[2020-06-23] MEDS: hydrALAZINE HCL 10 MG TABLET PO SCH ×6 (01:00→21:27)
[2020-06-23 08:00] VITALS: BP 129/59
--- NOTE | 2020-06-23 08:00 | NUR ---
GPS RN NOTE: PT RECEIVED ASLEEP, EASILY AROUSAL. ALERT ORIENTED X 2. ON RA, NO BREATHING DISTRESS NOTED. DENIES PAIN & DISCOMFORT. DENIES SI/HI. REORIENTATION PROVIDED. SAFETY MEASURES OBSERVED. ENCOURAGE PT TO CALL FOR ASSISTANCE. CONTINUE TO MONITOR [id number] FOR SAFETY.
[2020-06-23] MEDS: THIAMINE HCL 100 MG TABLET PO SCH (08:39)
[2020-06-23] MEDS: LACTULOSE 10 G/15 ML UDC (PYXIS) PO SCH ×3 (08:39→17:00)
[2020-06-23] MEDS: DONEPEZIL 5 MG TABLET PO SCH ×2 (08:39→17:14)
[2020-06-23] MEDS: CHOLECALCIFEROL 1,000 UNIT TABLET (VIT D3) PO SCH (08:39)
[2020-06-23] MEDS: LEVOTHYROXINE SODIUM 88 MCG TABLET PO SCH (08:39)
[2020-06-23] MEDS: FAMOTIDINE (20 MG) 20 MG TABLET PO SCH (08:39)
[2020-06-23] MEDS: FOLIC ACID 1 MG TABLET PO SCH (08:39)
[2020-06-23] MEDS: AMLODIPINE BESYLATE 2.5 MG TABLET PO SCH (08:39)
[2020-06-23] MEDS: NEOMYCIN SULFATE (500MG) 500 MG TABLET PO SCH ×2 (08:40→17:14)
[2020-06-23] MEDS: RIFAXIMIN 550 MG TABLET PO SCH ×2 (08:40→17:14)
[2020-06-23] MEDS: DIVALPROEX SODIUM 250 MG TABLET.DR PO SCH ×3 (08:40→17:14)
[2020-06-23] MEDS: LEVETIRACETAM (250 MG) 250 MG TABLET PO SCH ×2 (08:48→20:57)
[2020-06-23 16:00] VITALS: BP 139/72
[2020-06-23 16:12] VITALS: BP 139/72
[2020-06-23 20:14] VITALS: BP 115/66
[2020-06-23] MEDS: OLANZAPINE ZYDIS 5 MG TAB.RAPDIS PO SCH (21:27)
[2020-06-24] MEDS: hydrALAZINE HCL 10 MG TABLET PO SCH ×6 (01:31→20:59)
[2020-06-24 08:00] VITALS: BP 124/61
[2020-06-24] MEDS: LEVOTHYROXINE SODIUM 88 MCG TABLET PO SCH (08:18)
[2020-06-24] MEDS ORDERED: DIVALPROEX SODIUM 250 MG TABLET.DR PO ONE (08:32)
[2020-06-24] MEDS: DONEPEZIL 5 MG TABLET PO SCH ×2 (08:39→16:30)
[2020-06-24] MEDS: CHOLECALCIFEROL 1,000 UNIT TABLET (VIT D3) PO SCH (08:40)
[2020-06-24] MEDS: FAMOTIDINE (20 MG) 20 MG TABLET PO SCH (08:40)
[2020-06-24] MEDS: AMLODIPINE BESYLATE 2.5 MG TABLET PO SCH (08:40)
[2020-06-24] MEDS: FOLIC ACID 1 MG TABLET PO SCH (08:40)
[2020-06-24] MEDS: THIAMINE HCL 100 MG TABLET PO SCH (08:40)
[2020-06-24] MEDS: LACTULOSE 10 G/15 ML UDC (PYXIS) PO SCH ×3 (08:41→16:31)
[2020-06-24] MEDS: RIFAXIMIN 550 MG TABLET PO SCH ×2 (08:47→16:30)
[2020-06-24] MEDS: NEOMYCIN SULFATE (500MG) 500 MG TABLET PO SCH ×2 (08:47→16:31)
[2020-06-24] MEDS: DIVALPROEX SODIUM 250 MG TABLET.DR PO SCH ×2 (09:13→16:30)
[2020-06-24] MEDS: LEVETIRACETAM (250 MG) 250 MG TABLET PO SCH ×2 (09:13→20:58)
[2020-06-24 15:57] VITALS: BP 124/51
[2020-06-24 20:53] VITALS: BP 134/63
[2020-06-24] MEDS: OLANZAPINE ZYDIS 5 MG TAB.RAPDIS PO SCH (21:39)
[2020-06-25] MEDS: hydrALAZINE HCL 10 MG TABLET PO SCH ×6 (01:00→21:33)
[2020-06-25 08:00] VITALS: BP 135/66
[2020-06-25] MEDS: DIVALPROEX SODIUM 250 MG TABLET.DR PO SCH ×2 (08:27→16:28)
[2020-06-25] MEDS: LACTULOSE 10 G/15 ML UDC (PYXIS) PO SCH ×3 (08:27→16:28)
[2020-06-25] MEDS: FOLIC ACID 1 MG TABLET PO SCH (08:28)
[2020-06-25] MEDS: LEVOTHYROXINE SODIUM 88 MCG TABLET PO SCH (08:28)
[2020-06-25] MEDS: FAMOTIDINE (20 MG) 20 MG TABLET PO SCH (08:28)
[2020-06-25] MEDS: DONEPEZIL 5 MG TABLET PO SCH ×2 (08:29→16:28)
[2020-06-25] MEDS: CHOLECALCIFEROL 1,000 UNIT TABLET (VIT D3) PO SCH (08:29)
[2020-06-25] MEDS: LEVETIRACETAM (250 MG) 250 MG TABLET PO SCH ×2 (08:30→21:32)
[2020-06-25] MEDS: AMLODIPINE BESYLATE 2.5 MG TABLET PO SCH (08:31)
[2020-06-25] MEDS: RIFAXIMIN 550 MG TABLET PO SCH ×2 (08:31→16:28)
[2020-06-25] MEDS: NEOMYCIN SULFATE (500MG) 500 MG TABLET PO SCH ×2 (08:32→16:28)
[2020-06-25] MEDS: THIAMINE HCL 100 MG TABLET PO SCH (08:38)
[2020-06-25 20:00] VITALS: BP 147/73
[2020-06-25] MEDS: OLANZAPINE ZYDIS 5 MG TAB.RAPDIS PO SCH (21:32)
[2020-06-26] MEDS: hydrALAZINE HCL 10 MG TABLET PO SCH ×6 (01:00→21:23)
[2020-06-26 08:00] VITALS: BP 144/71
[2020-06-26] MEDS: LACTULOSE 10 G/15 ML UDC (PYXIS) PO SCH ×3 (09:00→17:59)
[2020-06-26] MEDS: DONEPEZIL 5 MG TABLET PO SCH ×2 (11:09→18:00)
[2020-06-26] MEDS: THIAMINE HCL 100 MG TABLET PO SCH (11:10)
[2020-06-26] MEDS: DIVALPROEX SODIUM 250 MG TABLET.DR PO SCH ×2 (11:11→18:03)
[2020-06-26] MEDS: AMLODIPINE BESYLATE 2.5 MG TABLET PO SCH (11:11)
[2020-06-26] MEDS: FOLIC ACID 1 MG TABLET PO SCH (11:11)
[2020-06-26] MEDS: FAMOTIDINE (20 MG) 20 MG TABLET PO SCH (11:11)
[2020-06-26] MEDS: LEVETIRACETAM (250 MG) 250 MG TABLET PO SCH ×2 (11:18→21:22)
[2020-06-26] MEDS: LEVOTHYROXINE SODIUM 88 MCG TABLET PO SCH (11:18)
[2020-06-26] MEDS: CHOLECALCIFEROL 1,000 UNIT TABLET (VIT D3) PO SCH (11:18)
[2020-06-26] MEDS: RIFAXIMIN 550 MG TABLET PO SCH ×2 (11:19→18:00)
[2020-06-26] MEDS: NEOMYCIN SULFATE (500MG) 500 MG TABLET PO SCH ×2 (11:19→17:59)
[2020-06-26 16:00] VITALS: BP 137/59
[2020-06-26 20:00] VITALS: BP 122/62
--- NOTE | 2020-06-26 20:00 | NUR ---
GPS OPENING NOTE patient in the room, awake, no complains of pain. patient appears happy at this time, unkempt,but no aggression noted this time. reality orientation done. q15 min checks and will ontinue to monitor patient for mood, safety and behavior.
[2020-06-26] MEDS: OLANZAPINE ZYDIS 5 MG TAB.RAPDIS PO SCH (21:22)
[2020-06-27] MEDS: hydrALAZINE HCL 10 MG TABLET PO SCH ×6 (00:47→21:34)
--- NOTE | 2020-06-27 00:47 | NUR ---
RN NOTE: REFUSED HYDRALAZINE PATIENT REFUSED VITALS & HYDRALAZINE 10 MG SCHEDULED AT THIS TIME. PT. WANTED TO SLEEP AND REFUSING VITALS & MEDICINE. STATES "ITS ONE IN THE AM. LEAVE ME ALONE." NO ACUTE DISTRESS NOTED. WILL CONTINUE TO MONITOR. WILL OFFER AGAIN AT NEXT SCHEDULED TIME.
[2020-06-27 08:00] VITALS: BP 118/54
[2020-06-27] MEDS: AMLODIPINE BESYLATE 2.5 MG TABLET PO SCH (09:00)
[2020-06-27] MEDS: DIVALPROEX SODIUM 250 MG TABLET.DR PO SCH ×2 (09:12→17:47)
[2020-06-27] MEDS: FAMOTIDINE (20 MG) 20 MG TABLET PO SCH (09:12)
[2020-06-27] MEDS: LACTULOSE 10 G/15 ML UDC (PYXIS) PO SCH ×3 (09:12→17:46)
[2020-06-27] MEDS: RIFAXIMIN 550 MG TABLET PO SCH ×2 (09:12→17:46)
[2020-06-27] MEDS: THIAMINE HCL 100 MG TABLET PO SCH (09:13)
[2020-06-27] MEDS: FOLIC ACID 1 MG TABLET PO SCH (09:13)
[2020-06-27] MEDS: LEVOTHYROXINE SODIUM 88 MCG TABLET PO SCH (09:13)
[2020-06-27] MEDS: CHOLECALCIFEROL 1,000 UNIT TABLET (VIT D3) PO SCH (09:13)
[2020-06-27] MEDS: DONEPEZIL 5 MG TABLET PO SCH ×2 (09:13→17:47)
[2020-06-27] MEDS: NEOMYCIN SULFATE (500MG) 500 MG TABLET PO SCH ×2 (09:17→17:46)
[2020-06-27] MEDS: LEVETIRACETAM (250 MG) 250 MG TABLET PO SCH ×2 (10:42→21:34)
--- NOTE | 2020-06-27 14:52 | NUR ---
Family Contact: SW contacted the pts son, Cruzito ([phone]), and informed him that the pt is going to be discharged back to [facility] tomorrow.
--- NOTE | 2020-06-27 15:13 | NUR ---
SNF Contact: JOVITA faxed updated notes to [facility] with attn to Kandy to the fax number: [phone].
[2020-06-27 16:00] VITALS: BP 127/64
--- NOTE | 2020-06-27 19:03 | NUR ---
no change in status.
[2020-06-27 21:10] VITALS: BP 147/71
[2020-06-27] MEDS: OLANZAPINE ZYDIS 5 MG TAB.RAPDIS PO SCH (21:34)
[2020-06-28] MEDS: hydrALAZINE HCL 10 MG TABLET PO SCH ×4 (01:00→12:18)
--- NOTE | 2020-06-28 06:50 | NUR ---
GPS RN CLOSING NOTES: PATIENT AWAKE A/O X2. SLEPT 9HRS THIS SHIFT. PATIENT WAS MED COMPLIANT THIS SHIFT. PATIENT IS SCHEDULED TO BE DISCHARGED TODAY. COVID TEST ON BOTH NARES SWABBED AND TAKEN TO LAB FOR PLACEMENT PURPOSE. NO S/S OF DISTRESS. RESPIRATION EVEN AND UNLABORED WITH EQUAL RISE AND FALL OF THE CHEST, ON ROOM AIR. ALL PATIENT CARE NEEDS HAVE BEEN MET ANTICIPATED. BED IN LOWEST POSITION AND LOCKED WITH SIDE RAILS UP X2. WILL CONTINUE TO MONITOR FOR SAFETY, MOOD AND BEHAVIOR AND ENDORSE TO AM SHIFT
[2020-06-28 08:00] VITALS: BP 136/72
[2020-06-28] MEDS: CHOLECALCIFEROL 1,000 UNIT TABLET (VIT D3) PO SCH (09:03)
[2020-06-28] MEDS: RIFAXIMIN 550 MG TABLET PO SCH (09:03)
[2020-06-28] MEDS: LEVOTHYROXINE SODIUM 88 MCG TABLET PO SCH (09:04)
[2020-06-28] MEDS: NEOMYCIN SULFATE (500MG) 500 MG TABLET PO SCH (09:04)
[2020-06-28] MEDS: FAMOTIDINE (20 MG) 20 MG TABLET PO SCH (09:04)
[2020-06-28] MEDS: LEVETIRACETAM (250 MG) 250 MG TABLET PO SCH (09:04)
[2020-06-28] MEDS: FOLIC ACID 1 MG TABLET PO SCH (09:04)
[2020-06-28] MEDS: DIVALPROEX SODIUM 250 MG TABLET.DR PO SCH (09:04)
[2020-06-28] MEDS: AMLODIPINE BESYLATE 2.5 MG TABLET PO SCH (09:05)
[2020-06-28] MEDS: DONEPEZIL 5 MG TABLET PO SCH (09:05)
[2020-06-28] MEDS: LACTULOSE 10 G/15 ML UDC (PYXIS) PO SCH ×2 (09:05→12:18)
[2020-06-28] MEDS: THIAMINE HCL 100 MG TABLET PO SCH (09:05)
--- NOTE | 2020-06-28 09:44 | NUR ---
Dr. Borrego gave an order to D/C hold and D/C to [facility] and to follow up with psych and medical doctors and to continue same meds including prn. Dr. Fry made aware of the discharge and reconciled the meds. Belongings ready and discharge papers ready. Addendum: 06/30/20 at 0743 by DANNI NOLAND RN Late Notes for 06/28/20 Pt. without distress, denies suicidal and homicidal.
--- NOTE | 2020-06-28 11:48 | NUR ---
Report given to Flavia BERRIOS over the facility.
[2020-06-28 12:18] VITALS: BP 142/68
--- NOTE | 2020-06-28 13:35 | NUR ---
Pt. left the unit via ambulance and transported via a gurney with belongings. Pt. left the unit without distress. V/S taken: BP 150/69, NH 83, RR 18, temp 97.8 and oxygen sat 94%.
--- NOTE | 2020-06-28 13:40 | NUR ---
Discharge Note: Pt was discharged to [facility] ([facility]) located at [address] [place] [address]; ([phone]). Pt was transported via [facility] at 1 PM. SW informed the pts son, Cruzito ([phone]), about the pts discharge back. Upon discharge, pt appears to be in a dysphoric mood and presented with labile affect. Pt denies both suicidal and homicidal ideation as well as auditory and visual hallucinations. Pt appears to be alert and oriented x3 (person, place and situation). Pt appears to be ambulatory with an unsteady gait. Pt appears to be well-groomed. Pt will continue to be under the care of psychiatrist, Dr. Mccormick, located at [address] [place] [address]; and rn training, Dr. Melvin, located at [address] [place] [address]; . Pt signed the Choice of Vendor form which was placed in the chart. The Choice of vendor form and the multidisciplinary exit care form was done, printed, signed, and given to the patient.
== END 2020-06-28 13:39 | DRG 885 ==
LOC: ER 15:01 → GPS 21:13
PROVIDERS: ADMIT Psychiatry & Neurology Psychiatry; ATTEND Internal Medicine
DX: F39 Unspecified mood [affective] disorder (principal); F23 Brief psychotic disorder; F32.9 Major depressive disorder, single episode, unspecified; F41.9 Anxiety disorder, unspecified; G40.909 Epilepsy, unspecified, not intractable, without status epilepticus; K74.60 Unspecified cirrhosis of liver; E03.9 Hypothyroidism, unspecified; Z20.822 Contact with and (suspected) exposure to COVID-19; Z73.6 Limitation of activities due to disability; M62.81 Muscle weakness (generalized); F03.90 Unspecified dementia, unspecified severity, without behavioral disturbance, psychotic disturbance, mood disturbance, and anxiety
CPT/HCPCS: 36415; 70450-TC; 71250-TC; 80048-TC; 80061-TC; 80076-TC; 80164-TC; 82140-TC; 82962-TC; 85025-TC; 87081-TC; 97116-TC; 97530-TC; C9803; G0480; J1200; J1630; J2060

== ENCOUNTER 2023-03-03 15:14 | Inpatient (IN) | payer MEDICARE, OTHER ==
[~2023-03-03] VITALS: Ht 177.8 cm; Wt 83.9 kg
[~2023-03-03 15:14] MED LIST: ACET325T53 PO; AMLO2.5T2 PO; CHOL200013 PO; DONE10TA11 PO; FAMO-131 PO; FOLI0.8T3 PO; HYDR-4075 PO; LACT10SO3 PO; LEVE1000 PO; LEVO137T24 PO; NEOM500T PO; RIFA550T PO; THIA100T88 PO
[2023-03-03] MEDS: IV NS 0.9% 1,000 ML BAG IV ONE (16:30)
[2023-03-03] MEDS ORDERED: METF-440 PO (17:27)
[2023-03-03] MEDS ORDERED: CHOL100043 PO (17:27)
[2023-03-03] MEDS ORDERED: INSU100V3 SQ (17:27)
[2023-03-03] MEDS ORDERED: DIVA500T2 PO (17:28)
[2023-03-03] MEDS ORDERED: MAG30ORA PO (17:28)
[2023-03-03] MEDS ORDERED: BISA10SU11 RC (17:28)
[2023-03-03] MEDS ORDERED: MAGN400O6 PO (17:28)
[2023-03-03] MEDS ORDERED: OLAN10TA3 PO (17:28)
[2023-03-03] MEDS ORDERED: ATOR40TA PO (17:28)
[2023-03-03] MEDS ORDERED: ACET-868 PO (17:28)
[2023-03-03] MEDS ORDERED: ASPI-1169 PO (17:28)
[2023-03-03] MEDS ORDERED: NA P133E RC (17:28)
[2023-03-03] MEDS ORDERED: CLON0.1T PO (17:28)
[2023-03-03 17:43] LABS: BASOPHILS # (AUTO) 0.1 K/uL (0.0-0.2); BASOPHILS % (AUTO) 1.2 % (0.0-2.0); EOSINOPHILS % (AUTO) 0.7 % (0.0-6.0); HEMATOCRIT 45 % (39-51); LYMPHOCYTES # (AUTO) 2.2 K/uL (0.8-4.8); MEAN CORPUSCULAR HEMOGLOBIN 30 PG (26.0-33.0); MEAN CORPUSCULAR HGB CONC 33 g/dl (31.0-36.0); MEAN CORPUSCULAR VOLUME 90 fL (80-96); MONOCYTES # (AUTO) 0.4 K/uL (0.1-1.30); MONOCYTES % (AUTO) 8.6 % (2.0-12.0); NEUTROPHILS # (AUTO) 2.4 K/uL (1.8-8.9); NEUTROPHILS % (AUTO) 46.5 % (43.0-81.0); PLATELET COUNT (AUTO) 191 K/uL (150-450); RED BLOOD CELL COUNT(AUTO) 5.04 MIL/uL (4.5-6.0); RED CELL DISTRIBUTION WIDTH 13.9 % (11.5-15.0); WHITE BLOOD COUNT (AUTO) 5.1 K/uL (4.3-11.0)
[2023-03-03 18:00] LABS: INR 0.95 (0.91-1.10); PROTHROMBIN TIME 10.1 SECS (9.2-11.1)
[2023-03-03 18:08] LABS: ALANINE AMINOTRANSFERASE 23 U/L (12-78); ALBUMIN 4.1 g/dL (3.4-5.0); ALKALINE PHOSPHATASE 92 U/L (46-116); ASPARTATE AMINOTRANSFERASE 16 U/L (15-37); BILIRUBIN,DIRECT 0.1 mg/dL (0.0-0.2); BILIRUBIN,TOTAL 0.5 mg/dL (0.2-1.0); CALCIUM, SERUM 9.5 mg/dL (8.5-10.1); CARBON DIOXIDE 25 mmol/L (21-32); CHLORIDE 100 mmol/L (98-107); CREATININE 1.2 mg/dL (0.6-1.3); GLUCOSE 281 mg/dL (74-106); POTASSIUM 4.6 mmol/L (3.5-5.1); SODIUM SERUM 134 mmol/L (136-145); TOTAL PROTEIN, SERUM 8.4 g/dL (6.4-8.2); UREA NITROGEN, BLOOD 16 mg/dL (7-18)
[2023-03-03 18:13] LABS: THYROID STIMULATING HORMONE 0.866 uIU/mL (0.358-3.74)
[2023-03-03 20:48] LABS: APPEARANCE,URINE CLEAR (CLEAR); BILIRUBIN,URINE NEGATIVE (NEGATIVE); BLOOD, URINE NEGATIVE Ery/uL (NEGATIVE); COLOR,URINE YELLOW (YELLOW); KETONES,URINE TRACE mg/dL (NEGATIVE); LEUKOCYTE ESTERASE ,URINE NEGATIVE (NEGATIVE); NITRITE, URINE NEGATIVE (NEGATIVE); PH,URINE 5.5 (5.0-8.0); PROTEIN,URINE NEGATIVE (NEGATIVE); UGLUCOSE 3+ mg/dL (NEGATIVE); UROBILINOGEN,URINE 0.2 EU/dL (0.2)
[2023-03-03] MEDS ORDERED: MAG HYDROX/AL HYDROX/SIMETH 30 ML UDC PO PRN (21:00)
[2023-03-03] MEDS ORDERED: ONDANSETRON HCL/PF 4 MG/2 ML VIAL IVP PRN (21:00)
[2023-03-03] MEDS ORDERED: DEXTROSE 50%-WATER 50 ML DISP.SYRIN IV PRN (21:00)
[2023-03-03] MEDS ORDERED: MAGNESIUM HYDROXIDE 30 ML UDC PO PRN (21:00)
[2023-03-03 21:06] LABS: ADD URINE CULTURE NO; BACTERIA,URINE None seen /HPF (None Seen); RBC,URINE NONE SEEN /HPF (0-2); WBC,URINE NONE SEEN /HPF (0-3)
[2023-03-03] MEDS: ASPIRIN 81 MG TAB.CHEW PO ONE (22:36)
[2023-03-03] MEDS: IV NS 0.9% 1,000 ML IV ONE (22:37)
[2023-03-03] MEDS: ENOXAPARIN SODIUM 40 MG/0.4 ML DISP.SYRIN SQ SCH (22:42)
[2023-03-03] MEDS: BLOOD SUGAR DIAGNOSTIC 1 EACH STRIP IN SCH (22:42)
[2023-03-03] MEDS: INSULIN REGULAR, HUMAN 100 UNIT/ML 3 ML VIAL SQ PRN (22:59)
[2023-03-04 07:32] LABS: BASOPHILS % (AUTO) 0.8 % (0.0-2.0); EOSINOPHILS % (AUTO) 0.6 % (0.0-6.0); HEMATOCRIT 39 % (39-51); HEMOGLOBIN 12.9 g/dL (13.5-17.5); LYMPHOCYTES # (AUTO) 1.9 K/uL (0.8-4.8); LYMPHOCYTES % (AUTO) 45.1 % (20.0-44.0); MEAN CORPUSCULAR HEMOGLOBIN 30 PG (26.0-33.0); MEAN CORPUSCULAR HGB CONC 34 g/dl (31.0-36.0); MEAN CORPUSCULAR VOLUME 89 fL (80-96); MONOCYTES # (AUTO) 0.4 K/uL (0.1-1.30); MONOCYTES % (AUTO) 9.4 % (2.0-12.0); NEUTROPHILS # (AUTO) 1.9 K/uL (1.8-8.9); NEUTROPHILS % (AUTO) 44.1 % (43.0-81.0); PLATELET COUNT (AUTO) 172 K/uL (150-450); RED BLOOD CELL COUNT(AUTO) 4.34 MIL/uL (4.5-6.0); RED CELL DISTRIBUTION WIDTH 13.7 % (11.5-15.0); WHITE BLOOD COUNT (AUTO) 4.3 K/uL (4.3-11.0)
[2023-03-04] MEDS: LEVOTHYROXINE SODIUM 88 MCG TABLET PO SCH (07:48)
[2023-03-04 08:00] VITALS: BP 138/67; TEMP 98.2; O2SAT 96
[2023-03-04 08:12] LABS: CALCIUM, SERUM 8.4 mg/dL (8.5-10.1); CREATININE 1.1 mg/dL (0.6-1.3); MAGNESIUM 2.1 mg/dL (1.8-2.4); PHOSPHORUS 3.1 mg/dL (2.5-4.9); POTASSIUM 3.9 mmol/L (3.5-5.1)
[2023-03-04] MEDS: DIVALPROEX SODIUM 500 MG TABLET.DR PO SCH (08:49)
[2023-03-04] MEDS: AMLODIPINE BESYLATE 2.5 MG TABLET PO SCH (08:49)
[2023-03-04] MEDS: RIFAXIMIN 550 MG TABLET PO SCH (08:49)
[2023-03-04] MEDS: THIAMINE HCL 100 MG TABLET PO SCH (08:50)
[2023-03-04] MEDS: PANTOPRAZOLE 40 MG VIAL IV SCH (08:50)
[2023-03-04] MEDS: LEVETIRACETAM (250 MG) 250 MG TABLET PO SCH (08:50)
[2023-03-04] MEDS: DONEPEZIL 5 MG TABLET PO SCH (08:50)
[2023-03-04] MEDS: ASPIRIN 81 MG TAB.CHEW PO SCH (08:50)
[2023-03-04] MEDS: FOLIC ACID 1 MG TABLET PO SCH (08:50)
[2023-03-04 16:00] VITALS: BP 124/51; TEMP 98.2; O2SAT 96
[2023-03-04 20:00] VITALS: BP 134/75; TEMP 97.7; O2SAT 98
[2023-03-04] MEDS: OLANZAPINE 10 MG TABLET PO SCH (22:12)
[2023-03-04] MEDS: ATORVASTATIN 40 MG TABLET PO SCH (22:12)
[2023-03-05 08:30] VITALS: BP 145/75; TEMP 98.6; O2SAT 94
[2023-03-05] MEDS: ACETAMINOPHEN 325 MG TABLET PO PRN (09:20)
[2023-03-05] MEDS: PANTOPRAZOLE 40 MG TABLET.DR PO SCH (09:22)
[2023-03-05 16:00] VITALS: BP 143/74; TEMP 98.7; O2SAT 94
[2023-03-05 20:00] VITALS: BP 124/96; TEMP 98.1; O2SAT 96
[2023-03-05 21:38] VITALS: BP 124/96; TEMP 98.1; O2SAT 96
[2023-03-06 08:59] VITALS: BP 137/77
== END 2023-03-06 15:38 | DRG 640 ==
LOC: ER 15:16 → MED 20:53
PROVIDERS: ADMIT Nurse Practitioner Acute Care; ATTEND Internal Medicine
DX: R62.7 Adult failure to thrive (principal); G93.41 Metabolic encephalopathy; E51.2 Wernicke's encephalopathy; G91.2 (Idiopathic) normal pressure hydrocephalus; G40.909 Epilepsy, unspecified, not intractable, without status epilepticus; G20.A1 Parkinson's disease without dyskinesia, without mention of fluctuations; F02.80 Dementia in other diseases classified elsewhere, unspecified severity, without behavioral disturbance, psychotic disturbance, mood disturbance, and anxiety; I12.9 Hypertensive chronic kidney disease with stage 1 through stage 4 chronic kidney disease, or unspecified chronic kidney disease; I69.398 Other sequelae of cerebral infarction; E03.9 Hypothyroidism, unspecified; E11.65 Type 2 diabetes mellitus with hyperglycemia; E78.5 Hyperlipidemia, unspecified; E11.22 Type 2 diabetes mellitus with diabetic chronic kidney disease; K74.60 Unspecified cirrhosis of liver; M19.90 Unspecified osteoarthritis, unspecified site; N18.30 Chronic kidney disease, stage 3 unspecified; Z86.16 Personal history of COVID-19; R13.10 Dysphagia, unspecified; K72.90 Hepatic failure, unspecified without coma; Z79.84 Long term (current) use of oral hypoglycemic drugs; F20.9 Schizophrenia, unspecified; F29 Unspecified psychosis not due to a substance or known physiological condition; Z79.4 Long term (current) use of insulin
CPT/HCPCS: 36415; 70450-TC; 71045-TC; 80048-TC; 80061-TC; 80076-TC; 81001; 82140-TC; 82962-TC; 83735-TC; 84100-TC; 84425; 84443-TC; 84484-TC; 85025-TC; 85730-TC; 92526; 92611-TC; 97110-TC; 97112-TC; 97530-TC; A4223; C9113; G0378; J1650; J1815; J7030

== ENCOUNTER 2024-12-27 14:36 | Emergency (ER) | payer MEDICARE, OTHER ==
[~2024-12-27] VITALS: Ht 177.8 cm; Wt 81.2 kg
[~2024-12-27 14:36] MED LIST changes: +ACET-868 PO; +ASPI-1169 PO; +ATOR40TA PO; +BISA10SU11 RC; +CHOL100043 PO; -CHOL200013 PO; +CLON0.1T PO; +DIVA500T2 PO; -FAMO-131 PO; +INSU100V3 SQ; +MAG30ORA PO; +MAGN400O6 PO; +METF-440 PO; +NA P133E RC; -NEOM500T PO; +OLAN10TA3 PO
[2024-12-27 17:06] VITALS: BP 107/50; TEMP 98.2; O2SAT 96
== END 2024-12-27 17:07 ==
LOC: ER 14:40
DX: F03.90 Unspecified dementia, unspecified severity, without behavioral disturbance, psychotic disturbance, mood disturbance, and anxiety (principal); I13.10 Hypertensive heart and chronic kidney disease without heart failure, with stage 1 through stage 4 chronic kidney disease, or unspecified chronic kidney disease; N18.9 Chronic kidney disease, unspecified; E11.22 Type 2 diabetes mellitus with diabetic chronic kidney disease; Z79.899 Other long term (current) drug therapy; Z79.84 Long term (current) use of oral hypoglycemic drugs; Z79.82 Long term (current) use of aspirin; W19.XXXA Unspecified fall, initial encounter
CPT/HCPCS: 70450-TC; 72125-TC